=== PATIENT | male | born 1965 | race Caucasian/White ===

== ENCOUNTER 2017-07-10 19:07 | Emergency (ER) | payer MEDICAID ==
[~2017-07-10] VITALS: Ht 152.4 cm; Wt 68.0 kg
[2017-07-10 19:10] VITALS: BP 120/85
--- NOTE | 2017-07-10 19:10 | NUR ---
PT BIB [facility] TO BED 6, REPORT GIVEN TO JOE LAI
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
--- NOTE | 2017-07-10 19:23 | NUR ---
[facility] AT BEDSIDE.
[2017-07-10] MEDS ORDERED: IBUPROFEN 800 MG TAB PO ONE (19:35)
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
--- NOTE | 2017-07-10 21:00 | NUR ---
RECEIVED REPORT FROM JOELLE DIAZ. TRANSFER OF CARE AT THIS TIME.
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
--- NOTE | 2017-07-10 21:30 | NUR ---
[facility] [employer] LEFT PHONE TO CONTACT. .
[2017-07-10 22:00] VITALS: BP 112/67
== END 2017-07-10 22:00 | disposition home or self-care (01) ==
LOC: MED 19:07
DX: S40.012A Contusion of left shoulder, initial encounter (principal); V49.60XA Unspecified car occupant injured in collision with unspecified motor vehicles in traffic accident, initial encounter; Y93.89 Activity, other specified; Y92.488 Other paved roadways as the place of occurrence of the external cause; Y99.8 Other external cause status
CPT/HCPCS: 73030; 99284